=== PATIENT | female | born 1950 | race Caucasian/White ===

== ENCOUNTER 2020-12-02 13:16 | Outpatient (CLI) | payer MEDICAID, SELFPAY ==
--- NOTE | 2020-12-02 13:22 | MM_ITS ---
WS: [id number] BILATERAL SCREENING DIGITAL MAMMOGRAM WITH CAD HISTORY: SCREENING COMPARISON: None available. Bilateral CC and MLO views submitted. Computer aided detection analyzed. Breast composition: There are scattered areas of fibroglandular density. No suspicious masses, microc alcifications or architectural distortion. Vascular calcifications and benign coarse calcifications i n each breast. MM/[place] [id number] IMPRESSION: BI-RADS: 2-Benign FOLLOW UP: 1 Year Follow-up
--- NOTE | 2020-12-02 14:20 | CT_ITS ---
WS: [id number] LDCT LUNG CANCER SCREENING HISTORY: NICOTINE DEPENDENCE, CIGARETTES TECHNIQUE: Axial imaging performed from the apices to 1 cm below the costophrenic angles. Coronal and sagittal reformats are submitted with axial MIP series. All CT scans at [facility] use at least one of these dose optimization techniques: automated exposure control; mA and/or kV adjustment per patient size (includes targeted exams where dose is matched to clinical indication); or iterativ e reconstruction. DLP: 53.4 mGy.cm DIvol: 1.58 mGy COMPARISON: 04/04/2010 Diagnostic quality: Satisfactory Lung Nodules: Biapical pleural thickening and subsegmental atelectasis in the upper lung [place]. No p ulmonary nodules. No endobronchial lesions. There is very mild narrowing of the proximal LEFT upper l obe bronchus. Lungs: Area of atelectasis involving the medial LEFT upper lobe. On prior examination there was dense area of consolidation or lobar collapse in the LEFT upper lobe. Heart: Moderately enlarged chambers. Heavy mitral annular calcification along the mitral valve plane. Moderate calcification along the [place] coronary arteries. Other findings: Extensive atherosclerosis within the thoracic aorta. Ectasia and calcification and mi ld dilatation. Progression of atherosclerotic changes since 04/04/2010. This study is in adequate to ev aluate for mediastinal or hilar adenopathy. CT/CT lung screening [id number] IMPRESSION: LUNG-RADS: 1-Negative FOLLOW UP: 12 Month: Continue annual screening with LDCT OTHER FINDINGS (S MODIFIER): None.
== END 2020-12-02 13:17 | disposition home or self-care (01) ==
PROVIDERS: Visit Provider Family Medicine
DX: Z12.31 Encounter for screening mammogram for malignant neoplasm of breast (principal); F17.210 Nicotine dependence, cigarettes, uncomplicated
CPT/HCPCS: 71271; 77067

== ENCOUNTER 2022-06-02 09:08 | Outpatient (CLI) | payer MEDICAID, SELFPAY ==
--- NOTE | 2022-06-02 09:22 | CT_ITS ---
WS: [id number] LDCT LUNG CANCER SCREENING HISTORY: NICOTINE DEPENDENCE TECHNIQUE: Axial imaging performed from the apices to 1 cm below the costophrenic angles. Coronal and sagittal reformats are submitted with axial MIP series. All CT scans at [facility] use at least one of these dose optimization techniques: automated exposure control; mA and/or kV adjustment per patient size (includes targeted exams where dose is matched to clinical indication); or iterativ e reconstruction. DLP: 69.00 mGy.cm DIvol: Mean CTDIvol: 1.60 (mGy) COMPARISON: 12/02/2020 Diagnostic quality: Satisfactory Lung Nodules: None. Lungs: Focal area of scarring with calcification and bronchiectasis medial LEFT upper lobe is stable. No pneumonia. Heart: Mildly enlarged heart. Calcification along the mitral annular valve plane. Other findings: Moderate extensive atherosclerosis aorta. Calcification extends into the proximal gre at vessels. No adenopathy is identified. Small hiatal hernia. Calcification continues into the suprar enal abdominal aorta. Splenic artery calcifications. Mild curvature thoracic spine. CT/CT lung screening [id number] IMPRESSION: LUNG-RADS: 2-Benign Appearance or Behavior FOLLOW UP: 1 Month LDCT OTHER FINDINGS (S MODIFIER): None.
== END 2022-06-02 09:09 | disposition home or self-care (01) ==
PROVIDERS: PCP Family Medicine; Visit Provider Family Medicine
DX: F17.210 Nicotine dependence, cigarettes, uncomplicated (principal)
CPT/HCPCS: 71271

== ENCOUNTER 2022-08-28 11:24 | Emergency (ER) | payer MEDICAID, SELFPAY ==
[2022-08-28] VITALS (9 sets, daily range): BP systolic 115–164; BP diastolic 70–99; PULSE 75–92; RESP 16–25; TEMP 36.2–36.4; O2SAT 93–97
--- NOTE | 2022-08-28 11:26 | XR_ITS ---
WS: [id number] Exam: XR chest 1V portable [id number] Date/Time of Exam: 08/28/2022 11:26 AM Reason For Exam: dyspnea Comparison 01/21/2019. The lungs are fully inflated and clear. Mild cardiac enlargement. The mediastinum is normal in contou r. No pleural effusions. Monitoring leads superimpose the chest. XR/XR chest 1V portable [id number] IMPRESSION: 1. Slight cardiac enlargement. No acute process.
--- NOTE | 2022-08-28 11:32 | ECG_ITS ---
[facility] Test Date: 2022-08-28 Pat Name: Michelle Palafox Department: Room: Gender: Female Flange Turner: : 1950 Requested By: Jacque Gudino Order Number: [id number] Rikki MD: Fátima Arenas M.D. Measurements Intervals [place] Rate: 91 P: -58 AK: 168 QRS: -17 QRSD: 116 T: 61 QT: 370 QTc: 456 Interpretive Statements ECTOPIC ATRIAL RHYTHM WITH FREQUENT VENTRICULAR PREMATURE COMPLEXES INCOMPLETE RIGHT BUNDLE BRANCH BLOCK [90+ ms QRS DURATION, TERMINAL R IN V1/V2, 40+ ms S IN I/aVL/V4/V5/V6] MODERATE ST DEPRESSION [0.05+ mV ST DEPRESSION] No previous ECG available for comparison ANDREA Arenas MD/ Cardiology Electronically Signed On 08-28-2022 19:12:33 CDT by Fátima Arenas M.D. [id number]
--- NOTE | 2022-08-28 11:39 | ED_ITS ---
HPI - General Adult General: Chief complaint: Shortness of Breath/Dyspnea Stated complaint: RESPIRATORY DISTRESS Time Seen by Provider: 08/28/22 11:26 History of Present Illness: 72-year-old female with history of allergic reaction, hypertension who presents the emergency room with concerns of shortness of breath. Patient tells me that she has been having shortness of breath cough for 1 week. Patient has any fever or chills reports productive sputum. Patient denies any diarrhea melena or hematochezia. Patient is no abdominal complaints or decreased p.o. intake. Patient denies any urinary complaints. Patient denies shortness breath is worse with exertion. Patient was told to come to the emergency room by her primary care provider for concerns of possible pneumonia. EMS was called patient was brought to the emergency room. In route, patient was noted to be satting greater than 95% on room air. Patient not in any respiratory distress. Patient denies any other focal complaints. Onset:1 week ago Duration:1 week Location:home Severity:moderate Associated symptoms: Reports dyspnea; Deny chest pain, nausea, rash, palpitations or vomiting Review of Systems Const: Denies: fever(s) or chills Eyes: Denies: change in vision ENMT: Denies: mouth pain Card: Denies: chest pain or palpitations Resp: Reports: dyspnea and productive cough GI: Denies: abdominal pain, nausea, vomiting or diarrhea : Denies: dysuria Musc: Denies: extremity pain Skin/Breast: Denies: rash or new lesions Neuro: Denies: weakness in extremities Psych: Reports: other (Normal mood) Facundo/Lymph: Denies: easy bruising PFS ED PFSH: Medical History Allergic reaction Hypertension Social History Smoking and tobacco status: current every day smoker Alcohol intake: never Substance/Drug Use: never Physical Exam Const: COMMON NORMALS: alert HENMT: COMMON NORMALS: atraumatic HEAD & SCALP: atraumatic MOUTH: moist mucous membranes not abnormal Eye: COMMON NORMALS: EOMs intact bilaterally and conjunctivae normal CONJUNCTIVA: Yes conjunctivae normal Neck/C-Spine: COMMON NORMALS: full ROM and supple Resp: COMMON NORMALS: normal respiratory effort OTHER: +mild coarse breath sounds b/l Cardio: COMMON NORMALS: regular rate RATE: regular rate OTHER: 2+ radial pulses b/l GI: COMMON NORMALS: Soft to palpation and non-tender PALPATION: Yes Soft to palpation OTHER: No focal TTP. NO guarding rebound, guarding, rigidity. No CVA tenderness to percussion. Neg Pandey/Neg McBurney's point tenderness, no suprabupic tenderness to palpation. Extremity: COMMON NORMALS: full ROM Neuro: SENSORIUM/ORIENTATION: Yes alert MOTOR EXAM: No Abnormal motor strength present and Other motor observations present (no focal motor deficits) Psych: COMMON NORMALS: speech normal SPEECH: Yes normal speech MOOD & AFFECT: Yes euthymic mood Course Vital Signs: Vital signs: Vital Signs Temperature 97.6 F 08/28/22 11:27 Pulse Rate 85 08/28/22 14:00 Respiratory Rate 24 H 08/28/22 14:00 Blood Pressure 164/76 08/28/22 14:00 Pulse Oximetry 94 08/28/22 14:00 Oxygen Delivery Me thod 08/28/22 14:00 MDM - General Adult Medical Decision Making 72-year-old female with history of allergic reaction, hypertension who presents the emergency room with concerns of shortness of breath cough. Patient has been having symptoms for 1 week. Lung exam showed coarse breath sounds. Patient is noted to white count 10.8. X-ray is negative for pneumonia. proBNP of 900. Patient received 40 mg Lasix albuterol she reports feeling symptomatically proved. Patient's COVID influenza negative today. Given the fact that troponin x2 with delta less than 5, EKG is nonischemic, I do not suspect this is ACS. Doubt ACS/PE or other emergent causes of dyspnea. No suspicion for aortic dissection given no widened mediastinum, 2+ upper extremity pulses, or tearing pain. No suspicion for PE given no pleuritic chest pain, recent immobilization or surgery hemoptysis, or other VTE risk factors. EKG is non-ischemic. XR normal . Patient has a history of pneumonia request for antibiotics. Have given patient a prescription for antibiotics should she have any fever or worsening cough or dyspnea Rx albuterol for cough and dyspnea, doxycycline in case of pneumonia Disposition: Discharge. Patient counseled regarding diagnostic impression, treatment plan. Patient given ED strict return precautions to return for continuation, worsening, or development of new symptoms. Instructed to f/u w/ PCP regarding symptoms today. Patient verbalized understanding. Lab Data : 08/28/22 11:40 08/28/22 11:40 Radiology Impressions Chest X-Ray 08/28/22 11:26 IMPRESSION: 1. Slight cardiac enlargement. No acute process. Laboratory Results WBC 10.8 10^3/uL (4.0-10.0) H 08/28/22 11:40 RBC 4.48 10^6/uL (4.1-5.3) 08/28/22 11:40 Hgb 13.9 g/dL (11.5-15.3) 08/28/22 11:40 Hct 42.4 % (37.0-47.0) 08/28/22 11:40 MCV 94.6 fl (81-99) 08/28/22 11:40 MCH 31.0 pg (28.0-34.0) 08/28/22 11:40 MCHC 32.8 g/dL (30.0-36.0) 08/28/22 11:40 RDW 13.7 % (12.1-15.1) 08/28/22 11:40 Plt Count 255 10^3/cmm (130-400) 08/28/22 11:40 MPV 10.4 fL (7.4-10.4) 08/28/22 11:40 Neut % (Auto) 53.9 % 08/28/22 11:40 Lymph % (Auto) 31.0 % 08/28/22 11:40 [place] % (Auto) 9.7 % 08/28/22 11:40 Eos % (Auto) 4.2 % 08/28/22 11:40 Baso % (Auto) 1.0 % 08/28/22 11:40 Neut # (Auto) 5.83 10^3/uL (1.8-7.7) 08/28/22 11:40 Lymph # (Auto) 3.4 10^3/uL (0.8-4.8) 08/28/22 11:40 [place] # (Auto) 1.1 10^3/uL (0.2-0.9) H 08/28/22 11:40 Eos # (Auto) 0.5 10^3/uL (0.0-0.8) 08/28/22 11:40 Baso # (Auto) 0.1 10^3/uL (0.0-0.1) 08/28/22 11:40 Nucleated RBC % (auto) 0 % 08/28/22 11:40 Nucleated RBCs # 0.0 /100WBC 08/28/22 11:40 Sodium 138 mmol/L (136-145) 08/28/22 11:40 Potassium 4.3 mmol/L (3.5-5.1) 08/28/22 11:40 Chloride 99 mmol/L (98-107) 08/28/22 11:40 Carbon Dioxide 28 mmol/L (22-29) 08/28/22 11:40 Anion Gap 15.3 (5-19) 08/28/22 11:40 BUN 18 mg/dL (8-23) 08/28/22 11:40 Creatinine 0.7 mg/dL (0.5-0.9) 08/28/22 11:40 GFR Calculation 82.7 mL/min (90-130) L 08/28/22 11:40 Glucose 113 mg/dL (65-115) 08/28/22 11:40 Calculated Osmolality 289 mOsm/kg (285-295) 08/28/22 11:40 Calcium 9.5 mg/dL (8.5-10.5) 08/28/22 11:40 Troponin T Baseline 8 ng/L (0-10) 08/28/22 11:40 Troponin T 120 Minute 7.71 ng/L (0-10) 08/28/22 14:02 NT-Pro-B Natriuret Pep 945 pg/mL (0-125) H 08/28/22 11:40 Coronavirus 229E (PCR) Not detected (NOT DETECT) 08/28/22 11:40 Influenza Type A Ag Negative (Negative) 08/28/22 11:40 Influenza Type B Ag Negative (Negative) 08/28/22 11:40 SARS-CoV-2 (PCR) Not detected (NOT DETECT) 08/28/22 11:40 Imaging Data Other Imaging: Radiologist's impression: [address] [address] XRay Report Signed Patient: Michelle Palafox Unit #: [id number] : 1950 Age/Sex: 72 / F ADM Date: 08/28/22 Loc: ER Room/Bed: Attending Dr: Ordering Provider/Ordering MD: Jacque Gudino MD Date of Service: 08/28/22 Procedure(s): XR chest 1V portable [id number] Accession Number(s): [id number] Report Number: [id number] WS: [id number] Exam: XR chest 1V portable [id number] Date/Time of Exam: 08/28/2022 11:26 AM Reason For Exam: dyspnea Comparison 01/21/2019. The lungs are fully inflated and clear. Mild cardiac enlargement. The mediastinum is normal in contour. No pleural effusions. Monitoring leads superimpose the chest. XR/XR chest 1V portable [id number] IMPRESSION: 1. Slight cardiac enlargement. No acute process. ? Dictated By: Dagoberto Yeager DO Signed By: Dagoberto Yeager DO Signed Date/Time: 08/28/22 1231 DD/ 1230 Discharge Plan Discharge Patient Disposition: Home Clinical Impression: Dyspnea, Cough Condition: Stable Prescriptions: New doxycycline hyclate 100 mg capsule 100 mg PO BID 10 Days Qty: 20 0RF albuterol sulfate 90 mcg/actuation HFA aerosol inhaler 2 inh inhalation Q4H PRN (Reason: shortness of breath or wheezing) 5 Days Qty: 6.7 0RF No Action Bevespi Aerosphere 9-4.8 mcg HFA aerosol inhaler 2 puff inhalation BID amlodipine 10 mg tablet 10 mg PO DAILY lisinopril 40 mg tablet 40 mg PO DAILY dicyclomine 10 mg capsule 10 mg PO DAILY loratadine [Allergy Relief (loratadine)] 10 mg tablet 10 mg PO DAILY fluticasone propionate [Flovent HFA] 110 mcg/actuation HFA aerosol inhaler 1 puff inhalation BID citalopram [Celexa] 40 mg tablet 40 mg PO DAILY fluticasone propionate 50 mcg/actuation spray,suspension 1 spray intranasal DAILY Rx Instructions: administer into each nostril Discharge Orders: Discharge ED (Routine); Ordered 08/28/22 Ordered By: Jacque Gudino Referrals: Morgan Jeronimo MD [Primary Care Provider] - Discharge Diet: Advance as tolerated Discharge Activity: Increase activity as tolerated Patient Instructions: Acute Cough (ED) Activity Restrictions/Additional Instructions: Come back to the emergency room if your symptoms worsen, have any shortness of breath, fever/chills, dehydration, inability tolerate food or drinks, any difficulty breathing, or any new or concerning complaints. Coding Level of Care Code ED Animal Biologist for Flavia Fwd Exam Comprehensive
[2022-08-28 11:55] LABS: Basophils # 0.1 10^3/uL (0.0-0.1); Eosinophils # 0.5 10^3/uL (0.0-0.8); Eosinophils % 4.2 %; Hematocrit 42.4 % (37.0-47.0); Hemoglobin 13.9 g/dL (11.5-15.3); Lymphocytes # 3.4 10^3/uL (0.8-4.8); Mean Corpuscular HGB Conc 32.8 g/dL (30.0-36.0); Mean Corpuscular Volume 94.6 fl (81-99); Mean Platelet Volume 10.4 fL (7.4-10.4); Monocytes # 1.1 10^3/uL (0.2-0.9); Monocytes % 9.7 %; Neutrophils # 5.83 10^3/uL (1.8-7.7); Neutrophils % 53.9 %; Nucleated Red Blood Cells % 0 %; Platelet Count 255 10^3/cmm (130-400); Red Blood Count 4.48 10^6/uL (4.1-5.3); Red Cell Distribution Width 13.7 % (12.1-15.1); White Blood Count 10.8 10^3/uL (4.0-10.0)
[2022-08-28 12:16] LABS: Influenza A by IFA Negative (Negative); Influenza B by IFA Negative (Negative)
[2022-08-28 12:29] LABS: Troponin(5th) Baseline 8 ng/L (0-10)
[2022-08-28 12:36] LABS: Anion Gap 15.3 (5-19); Blood Urea Nitrogen 18 mg/dL (8-23); Calcium 9.5 mg/dL (8.5-10.5); Carbon Dioxide 28 mmol/L (22-29); Chloride 99 mmol/L (98-107); Glomerular Filtration Rate 82.7 mL/min (90-130); Glucose 113 mg/dL (65-115); NT Pro B Type Natriuretic Pept 945 pg/mL (0-125); Osmolality Calculated 289 mOsm/kg (285-295); Potassium 4.3 mmol/L (3.5-5.1); Sodium 138 mmol/L (136-145)
[2022-08-28 13:37] LABS: Adenovirus Not Detected (NOT DETECT); Chlamydia Pneumoniae Not Detected (NOT DETECT); Coronavirus 229E,HKU1,NL63,OC4 Not Detected (NOT DETECT); Human Metapneumovirus Not Detected (NOT DETECT); Human Rhinovirus/Enterovirus Not Detected (NOT DETECT); Influenza A Not Detected (NOT DETECT); Influenza A H1 Not Detected (NOT DETECT); Influenza A H1-2009 Not Detected (NOT DETECT); Influenza A H3 Not Detected (NOT DETECT); Influenza B Not Detected (NOT DETECT); Mycoplasma Pneumoniae Not Detected (NOT DETECT); Parainfluenza Virus Type 1 Not Detected (NOT DETECT); Parainfluenza Virus Type 2 Not Detected (NOT DETECT); Parainfluenza Virus Type 3 Not Detected (NOT DETECT); Parainfluenza Virus Type 4 Not Detected (NOT DETECT); Respiratory Syncytial Virus A Not Detected (NOT DETECT); Respiratory Syncytial Virus B Not Detected (NOT DETECT); SARS-COV-2 Not Detected (NOT DETECT)
[2022-08-28] MEDS: ipratropium-albuterol 3 mL Neb INHALATION (13:45)
[2022-08-28] MEDS: FUROsemide 10 mg/mL SDV 4mL 40 MG IVP (13:56)
--- NOTE | 2022-08-28 13:58 | ECG_ITS ---
[facility] Test Date: 2022-08-28 Pat Name: Michelle Palafox Department: Room: Gender: Female Leader Assembler: : 1950 Requested By: Jacque Gudino Order Number: [id number] Rikki MD: Fátima Arenas M.D. Measurements Intervals [place] Rate: 85 P: -41 [place]: 177 QRS: -27 QRSD: 107 T: 58 QT: 374 QTc: 447 Interpretive Statements SINUS RHYTHM WITH FREQUENT VENTRICULAR PREMATURE COMPLEXES BORDERLINE LEFT AXIS DEVIATION [QRS AXIS < -20] INCOMPLETE RIGHT BUNDLE BRANCH BLOCK [90+ ms QRS DURATION, TERMINAL R IN V1/V2, 40+ ms S IN I/aVL/V4/V5/V6] MODERATE ST DEPRESSION [0.05+ mV ST DEPRESSION] Compared to ECG 08/28/2022 11:32:50 Ectopic atrial rhythm no longer present ST (T wave) deviation still present Electronically Signed On 08-28-2022 19:12:57 CDT by Fátima Arenas M.D. [id number]
[2022-08-28 14:32] LABS: Troponin 5 2HR 7.71 ng/L (0-10)
[2022-08-28 15:52] LABS: Troponin 5 2HR Delta -0.29 ABS# (0-10)
== END 2022-08-28 15:53 | disposition home or self-care (01) ==
PROVIDERS: Emergency Provider Emergency Medicine; PCP Family Medicine
DX: R06.00 Dyspnea, unspecified (principal); R05.9 Cough, unspecified; Z20.822 Contact with and (suspected) exposure to COVID-19; I10 Essential (primary) hypertension; F17.210 Nicotine dependence, cigarettes, uncomplicated
CPT/HCPCS: 71045; 80048; 83880; 84484; 85025; 87635; 87804; 93005; 94640; 96374; 99285; J1940

== ENCOUNTER 2022-11-17 11:04 | Outpatient (CLI) | payer MEDICAID, SELFPAY ==
--- NOTE | 2022-11-17 11:12 | MM_ITS ---
WS: [id number] VIEWS: MLO and CC views both breasts. 3D digital tomosynthesis is also included in this exam. Comparison made with prior exam of 12/02/2020. Findings: There was no sign of mass, architectural distortion or suspicious calcification in either breast. Sc attered fibroglandular densities MM/[place] [id number] Impression: BI-RADS: 2-Benign FOLLOW-UP: 1 Year Follow-up This mammogram was also analyzed by the Computer Aided Detection System R2 Imag [place] Program Technician.
== END 2022-11-17 11:05 | disposition home or self-care (01) ==
LOC: RAD 11:04
PROVIDERS: PCP Family Medicine; Visit Provider Family Medicine
DX: Z12.31 Encounter for screening mammogram for malignant neoplasm of breast (principal)
CPT/HCPCS: 77063; 77067

== ENCOUNTER 2023-07-22 10:41 | Outpatient (CLI) | payer MEDICAID, SELFPAY ==
--- NOTE | 2023-07-22 10:54 | CT_ITS ---
WS: [id number] LDCT LUNG CANCER SCREENING TECHNIQUE: Noncontrast CT of the chest with coronal and sagittal reformatted images. CLINICAL INFORMATION: NICOTINE DEPENDENCE,CIGARETTES COMPARISON: None. DLP: 42.30 mGy.cm DIvol: Mean CTDIvol: 0.70 (mGy) All CT scans at [facility] use at least one of these dose optimization techniques: automat ed exposure control; mA and/or kV adjustment per patient size (includes targeted exams where dose is matched to clinical indication); or iterative reconstruction. FINDINGS: Stable subsegmental atelectasis with bronchiectasis in the LEFT upper lobe. No other suspicious pulmo nary parenchymal abnormalities. Aortic calcification. Tortuous thoracic aorta. Coronary calcification. Aneurysmal tortuous upper abdo [place] aorta partially visualized measuring 4.0 x 5.0 cm AP by transverse. No mediastinal or hilar lym phadenopathy. Slightly prominent LEFT axillary lymph node measuring 8 mm. This can be further evaluat ed with ultrasound. Atrophic RIGHT kidney. Moderate spondylitic changes thoracic spine with mild thoracic curve and mild thoracic kyphosis. IMPRESSION: Abdominal aortic aneurysm in the upper abdomen partially visualized measuring 4.0 x 5.0 c m AP by transverse. Recommend further evaluation with CTa abdomen pelvis. Slightly prominent LEFT axillary lymph node measuring 8 mm. This can be further evaluated with ultras ound. CT/CT lung screening [id number] LUNG-RADS: 2S-Benign Appearance or Behavior with Significant Findings FOLLOW UP: 12 Month: Continue annual screening with LDCT
== END 2023-07-22 10:42 | disposition home or self-care (01) ==
PROVIDERS: PCP Family Medicine; Visit Provider Family Medicine
DX: Z12.2 Encounter for screening for malignant neoplasm of respiratory organs (principal); F17.210 Nicotine dependence, cigarettes, uncomplicated
CPT/HCPCS: 71271

== ENCOUNTER 2023-08-11 12:56 | Outpatient (CLI) | payer MEDICAID, SELFPAY ==
--- NOTE | 2023-08-11 13:02 | US_ITS ---
WS: [id number] ULTRASOUND SOFT TISSUES LEFT axilla HISTORY: AXILLARY LYMPHADENOPATHY COMPARISON: None available. TECHNIQUE: 2-D and color Doppler imaging is submitted. Small lymph nodes are identified within the axilla. These lymph nodes are not enlarged. Maximum diame ter of 1.1 cm. No increased vascularity. Normal fatty lara. IMPRESSION: Small benign-appearing LEFT axillary lymph nodes.
--- NOTE | 2023-08-11 13:02 | CT_ITS ---
WS: [id number] CT ANGIOGRAPHY ABDOMEN AND PELVIS HISTORY: ABDOMINAL AORTIC ANEURYSM W/O RUPTURE TECHNIQUE: CT angiogram is performed during IV injection. Reformation images reviewed. All CT scans a [email or web address] use at least one of these dose optimization techniques: automated exposure contro l; mA and/or kV adjustment per patient size (includes targeted exams where dose is matched to clinica l indication); or iterative reconstruction. CONTRAST: Omnipaque 350; 100 mL IV. DLP: 197.68 mGy.cm COMPARISON: None available. Motion artifact at the lung bases. No pneumonia. Mild cardiomegaly. Abdominal aorta: Markedly ectatic atherosclerotic changes throughout a tortuous dilated abdominal aor ta. Near contiguous calcified plaque within the wall. Near circumferential soft plaque surrounding th e patent lumen. Maximum diameter of 4.0 cm in the infrarenal aorta. Aneurysm begins just below the le [place]ne of the renal arteries and extends to the bifurcation. Aneurysm extends over a length of approxima tely 6.6 cm. Mildly ectatic atherosclerotic common iliac arteries. Nonaneurysmal. Increasing plaque e xtends into the proximal external iliac arteries. Mild atherosclerotic plaque involving the celiac ax is and SMA. No occlusions. Good enhancement of the LEFT kidney. Mild stenosis involving the proximal LEFT renal artery. There is nonenhancement of the RIGHT kidney with marked atrophy from chronic proce ss, probably chronic ischemia. Study is compromised by breathing motion artifact throughout the entire exam. Visceral organs are dif ficult to evaluate accurately. No organomegaly. No masses are identified. Marked fluid distention of the stomach. No small bowel obstruction. Marked constipation. Ventral abdominal wall hernia repair. N o free fluid or adenopathy. Moderate RIGHT curvature lumbar spine with asymmetric disc space narrowing. No fractures. IMPRESSION: 1. CT angiogram is significantly compromised by motion and breathing artifact. 2. Infrarenal abdominal aortic aneurysm extends over a length of 6.6 cm. Maximum transverse diameter 4.0 cm. There is marked tortuosity with calcified and noncalcified plaque. 3. Mildly ectatic common iliac arteries with extension of atherosclerotic plaque into the external il iac arteries. No occlusions. 4. Nonenhancement and severe atrophy RIGHT kidney. 5. Diffuse constipation.
[2023-08-11 14:22] LABS: Blood Urea Nitrogen 16 mg/dL (8-23)
[2023-08-11] MEDS: iohexol 350 mg/mL 500 mL Btl (per mL) IV (14:33)
== END 2023-08-11 12:57 | disposition home or self-care (01) ==
PROVIDERS: Radiology Diagnostic Radiology; PCP Family Medicine; Visit Provider Family Medicine
DX: I71.43 Infrarenal abdominal aortic aneurysm, without rupture (principal); I70.8 Atherosclerosis of other arteries; K59.00 Constipation, unspecified; N26.1 Atrophy of kidney (terminal)
CPT/HCPCS: 74174; 76882; 82565; 84520; Q9967

== ENCOUNTER 2024-04-20 11:48 | Emergency (ER) | payer MEDICAID, SELFPAY ==
[2024-04-20 11:52] VITALS: BP 137/86; PULSE 88; RESP 17; TEMP 36.8; O2SAT 97; BMI 20.3
[2024-04-20] MEDS: rabies vaccine 2.5 unit SDV IM (13:07)
--- NOTE | 2024-04-20 13:11 | W.ED.ANIMALB ---
HPI - Animal Bite General: Chief Complaint: Animal Bite Stated Complaint: cat bite, right arm Time Seen by Provider: 04/20/24 12:47 Source: patient Mode of arrival: ambulatory Limitations: no limitations History of Present Illness: 74-year-old female was bit and scratched by cat 3 days ago on her right wrist she has been on clindamycin states the erythema is improved but her PCP had sent her up here for rabies prophylaxis because she is unsure if the cat was vaccinated or not. She denies any fever denies any drainage Associated symptoms: Deny chills, fever(s) or headache(s) Review of Systems Const: Denies: fever(s), chills, body aches or change in appetite ENMT: Denies: throat pain or dental pain Card: Denies: chest pain Resp: Denies: dyspnea GI: Denies: abdominal pain, nausea, vomiting or diarrhea Musc: Denies: neck pain or back pain Skin/Breast: Denies: rash Neuro: Denies: headache(s) PFSH ED PFSH: Medical History Allergic reaction Hypertension Social History Smoking and tobacco/nicotine status: current every day tobacco/nicotine user cigarettes Packs smoked per day: 2 Years cigarettes smoked: 41 Alcohol intake: never Substance/Drug Use: never Physical Exam Const: COMMON NORMALS: no acute distress, patient oriented x3 and healthy appearing HENMT: COMMON NORMALS: normocephalic and atraumatic HEAD & SCALP: normocephalic and atraumatic Neck/C-Spine: COMMON NORMALS: full ROM and supple Chest: COMMONS NORMALS: normal inspection of the chest Resp: COMMON NORMALS: normal respiratory effort Cardio: COMMON NORMALS: regular rate, regular rhythm and No murmurs present (Cardio) RATE: regular rate RHYTHM: regular rhythm Extremity: COMMON NORMALS: normal to inspection and full ROM Neuro: COMMON NORMALS: patient oriented x3, moves all extremities and no focal motor deficits Psych: COMMON NORMALS: mental status grossly normal, Normal thought process present and cooperative THOUGHT PROCESS: Normal thought process present Skin: NARRATIVE SKIN EXAM: Cat bite scratches to right wrist no erythema at this time Course Vital Signs: Vital signs: Vital Signs Temperature 98.2 F 04/20/24 11:52 Pulse Rate 88 04/20/24 11:52 Respiratory Rate 17 04/20/24 11:52 Blood Pressure 137/86 04/20/24 11:52 Pulse Oximetry 97 04/20/24 11:52 Oxygen Delivery Me thod Room Air 04/20/24 11:52 MDM - Animal Bite Medical Decision Making Patient presents here with a cat bite to her right wrist she is already on antibiotics she has no signs of any severe cellulitis she is here for rabies prophylaxis will start first dose and then she is follow-up with infusion center for subsequent doses she stable for discharge informed if she has worsening cellulitis she is to return she understands agrees to plan she is to take the clindamycin as prescribed. Medical Records I reviewed the patient's medical records. No radiology studies performed this visit Discharge Plan Discharge Patient Disposition: Home Clinical Impression: Cat bite Condition: Stable Prescriptions: No Action Bevespi Aerosphere 9-4.8 mcg HFA aerosol inhaler 2 puff inhalation BID amlodipine 10 mg tablet 10 mg PO DAILY lisinopril 40 mg tablet 40 mg PO DAILY dicyclomine 10 mg capsule 10 mg PO DAILY loratadine [Allergy Relief (loratadine)] 10 mg tablet 10 mg PO DAILY fluticasone propionate [Flovent HFA] 110 mcg/actuation HFA aerosol inhaler 1 puff inhalation BID citalopram [Celexa] 40 mg tablet 40 mg PO DAILY fluticasone propionate 50 mcg/actuation spray,suspension 1 spray intranasal DAILY Rx Instructions: administer into each nostril Discharge Orders: Discharge ED (Routine); Ordered 04/20/24 Ordered By: Melecio Ferguson Referrals: Morgan Jeronimo MD [Primary Care Provider] - 4-7 days Discharge Diet: Advance as tolerated Discharge Activity: Resume usual activity Patient Instructions: Animal Bite (ED) Coding Level of Care Code ED Surveillance Technician for Flavia Tate
[2024-04-20] MEDS: rabies IG 300 unit/mL SDV 1 mL 1050 UNIT IM (13:12)
[2024-04-20 13:37] VITALS: BP 157/83; PULSE 87; RESP 18; O2SAT 94
== END 2024-04-20 13:38 | disposition home or self-care (01) ==
PROVIDERS: Emergency Provider Emergency Medicine; PCP Family Medicine
DX: S61.551A Open bite of right wrist, initial encounter (principal); W55.01XA Bitten by cat, initial encounter; I10 Essential (primary) hypertension; F17.210 Nicotine dependence, cigarettes, uncomplicated; Z29.14 Encounter for prophylactic rabies immune globulin; Z20.3 Contact with and (suspected) exposure to rabies; Z23 Encounter for immunization
CPT/HCPCS: 90375; 90471; 90675; 96372; 99283

== ENCOUNTER 2024-04-27 15:00 | Oncology outpatient (recurring) (ONCR) | payer MEDICAID, SELFPAY ==
[2024-04-25] MEDS: rabies vaccine 2.5 unit SDV IM (15:19)
[2024-04-27] MEDS: rabies vaccine 2.5 unit SDV IM (15:45)
== END 2024-04-28 23:59 | disposition home or self-care (01) ==
PROVIDERS: PCP Family Medicine; Visit Provider Internal Medicine Medical Oncology
DX: Z20.3 Contact with and (suspected) exposure to rabies (principal); Z23 Encounter for immunization; S60.811A Abrasion of right wrist, initial encounter; W55.03XA Scratched by cat, initial encounter; Z53.9 Procedure and treatment not carried out, unspecified reason
CPT/HCPCS: 90471; 90675

== ENCOUNTER 2024-05-04 14:52 | Oncology outpatient (recurring) (ONCR) | payer MEDICAID, SELFPAY ==
[2024-05-04] MEDS: rabies vaccine 2.5 unit SDV IM (16:04)
== END 2024-05-28 23:59 | disposition home or self-care (01) ==
PROVIDERS: PCP Family Medicine; Visit Provider Internal Medicine Medical Oncology
DX: Z20.3 Contact with and (suspected) exposure to rabies (principal); Z23 Encounter for immunization; S61.551A Open bite of right wrist, initial encounter; W55.01XA Bitten by cat, initial encounter
CPT/HCPCS: 90471; 90675

== ENCOUNTER 2024-06-22 13:19 | Outpatient (CLI) | payer MEDICAID, SELFPAY ==
--- NOTE | 2024-06-22 13:22 | MM_ITS ---
WS: [id number] BILATERAL SCREENING DIGITAL TOMOSYNTHESIS MAMMOGRAM WITH CAD HISTORY: SCREENING COMPARISON: 11/17/2022, 12/02/2020 Bilateral CC and MLO views with tomosynthesis and synthetic mammography submitted. Computer aided det ection analyzed. Breast composition: There are scattered areas of fibroglandular density. No suspicious masses, microc alcifications or architectural distortion. Benign calcifications in each breast. MM/[place] [id number] IMPRESSION: BI-RADS: 2-Benign FOLLOW UP: 1 Year Follow-up
== END 2024-06-22 13:20 | disposition home or self-care (01) ==
PROVIDERS: PCP Family Medicine; Visit Provider Family Medicine
DX: Z12.31 Encounter for screening mammogram for malignant neoplasm of breast (principal); I10 Essential (primary) hypertension; R92.323 Mammographic fibroglandular density, bilateral breasts; R92.1 Mammographic calcification found on diagnostic imaging of breast
CPT/HCPCS: 77063; 77067; 99204

== ENCOUNTER 2024-12-06 14:44 | Emergency (ER) | payer MEDICAID, SELFPAY ==
[2024-12-06 15:06] VITALS: BP 119/73; PULSE 98; RESP 18; TEMP 36.7; O2SAT 95
--- NOTE | 2024-12-06 15:37 | XR_ITS ---
WS: [id number] Portable AP upright chest, 12/06/2024 Clinical Data: psych xfer Comparison: Portable chest, 08/28/2022 Findings: No nodules, masses or effusions are seen. The heart is slightly enlarged. The pulmonary vas cularity is not increased. No pneumonia or pneumothorax is seen. The diaphragms are flattened. The ao rtic arch and descending thoracic aorta show calcification and tortuosity. There are soft tissue calc ifications overlying the proximal left humerus unchanged. 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 XR/XR chest 1V portable [id number] Impression: 1. Cardiomegaly and atherosclerosis. 2. Hyperinflation.
--- NOTE | 2024-12-06 15:39 | ED.C_ITS ---
HPI - Psych 2 General: Chief Complaint: Psychiatric Symptoms Stated Complaint: MHE Time Seen by Provider: 12/06/24 15:20 Source: patient Mode of arrival: ambulatory Limitations: other (poor historian) History of Present Illness: Patient is a 74-year-old female who presents the emergency department complaining of anxiety and paranoia. She is a very poor historian and does not provide much useful history, but does state that she would like to be seen by psychiatrist due to how much stress she is under. She is stating that she thinks people are out to get her, specifically 1 person that has stolen her identity and taken her name and likeness. She begins going off of many tangents, specifically talking about bald [employer] as well as her family member who is in the [employer]. She does not endorse any suicidal or homicidal plan, though when I asked her she does not specifically deny feeling suicidal homicidal. She also does not report any hallucinations, but when I asked her if she is seeing or hearing things she begins tangentially speaking about other subjects. She is requesting something for stress right now, states that she takes trazodone and when I review her medical history I do not see this prescription, I do see a prescription for citalopram. Reportedly she lives at home alone. Review of systems unobtainable due to her poor historian. complaint: other (Anxious and paranoid) Duration: constant Related Data Home Medications Medication Instructions Recorded Confirmed amlodipine 10 mg tablet 10 mg PO DAILY 07/30/22 12/06/24 lisinopril 40 mg tablet 40 mg PO DAILY 07/30/22 12/06/24 loratadine 10 mg tablet (Allergy 10 mg PO DAILY PRN allergies 07/30/22 12/06/24 Relief (loratadine)) atorvastatin 10 mg tablet 10 mg PO DAILY 12/06/24 12/06/24 mirtazapine 7.5 mg tablet 7.5 mg PO QPM 12/06/24 12/06/24 mupirocin 2 % topical ointment 1 applic topical TID 12/06/24 12/06/24 Allergies Allergy/AdvReac Type Severity Reaction Status Date / Time No Known Allergies Allergy Verified 12/06/24 15:13 Review of Systems 2 General: Reports: Other (Unobtainable due to poor historian) [facility] ED 2 PFSH: Medical History Allergic reaction Hypertension Social History Smoking and tobacco/nicotine status: current every day tobacco/nicotine user cigarettes Packs smoked per day: 2 Years cigarettes smoked: 41 Alcohol intake: never Substance/Drug Use: never Physical Exam 2 Const: COMMON NORMALS: no acute distress, patient oriented x3 and alert G ENERAL APPEARANCE: disheveled NUTRITIONAL APPEARANCE: thin O RIENTATION/CONSCIOUSNESS: Yes awake, Yes oriented to person, Yes oriented to place and Yes oriented to time OTHER: Paranoid HENMT: COMMON NORMALS: normocephalic and atraumatic HEAD & SCALP: n ormocephalic and atraumatic Eye: COMMON NORMALS: EOMs intact bilaterally and conjunctivae normal C ONJUNCTIVA: Yes conjunctivae normal Neck/C-Spine: COMMON NORMALS: full ROM Resp: COMMON NORMALS: normal respiratory effort, No retractions, No use of accessory muscles and clear to auscultation bilaterally AUSCULTATION: clear to auscultation bilaterally Cardio: COMMON NORMALS: regular rate and regular rhythm RATE: regular rate RHYTHM: regular rhythm GI: COMMON NORMALS: Soft to palpation and non-tender PALPATION: Yes Soft to palpation Extremity: COMMON NORMALS: normal to inspection and full ROM Neuro: COMMON NORMALS: patient oriented x3, moves all extremities, no focal motor deficits and no sensory deficits noted SENSORIUM/ORIENTATION: Yes alert, Yes oriented to person, Yes oriented to place and Yes oriented to time Psych: APPEARANCE: Yes disheveled ATTITUDE: Yes paranoid ACTIVITY/MOTOR BEHAVIOR: Yes psychomotor agitation SPEECH: Yes rapid MOOD & AFFECT: Yes anxious THOUGHT PROCESS: Flight of ideas present and Tangential thought process present THOUGHT CONTENT: No Suicidality present, No Homicidality present and No Hallucination(s) present Skin: COMMON NORMALS: no rashes or lesions noted GENERAL SKIN EXAM: no rashes or lesions noted Course 2 Vital Signs: Vital signs: Vital Signs Temperature 98.0 F 12/06/24 15:06 Pulse Rate 92 12/06/24 18:10 Respiratory Rate 18 12/06/24 15:06 Blood Pressure 132/78 12/06/24 18:10 Pulse Oximetry 94 12/06/24 18:10 Oxygen Delivery Me thod Room Air 12/06/24 18:10 [facility] - Psych Medical Decision Making Patient accepted for transfer to [facility] psych. Lab Data 12/06/24 16:07 12/06/24 16:07 Radiology Impressions Chest X-Ray 12/06/24 15:37 Impression: 1. Cardiomegaly and atherosclerosis. 2. Hyperinflation. Laboratory Results WBC 10.21 10^3/uL (3.29-11.43) 12/06/24 16:07 RBC 5.06 10^6/uL (3.85-5.65) 12/06/24 16:07 Hgb 15.40 g/dL (11.27-16.99) 12/06/24 16:07 Hct 47.5 % (36-47) H 12/06/24 16:07 MCV 93.9 fl (85-98) 12/06/24 16:07 MCH 30.4 pg (27-33) 12/06/24 16:07 MCHC 32.4 g/dL (30-55) 12/06/24 16:07 RDW 14.2 % (12.1-15.1) 12/06/24 16:07 Plt Count 248 10^3/cmm (157-399) 12/06/24 16:07 MPV 10.2 fL (7.4-10.4) 12/06/24 16:07 Neut % (Auto) 57.4 % 12/06/24 16:07 Lymph % (Auto) 30.0 % 12/06/24 16:07 [place] % (Auto) 10.0 % 12/06/24 16:07 Eos % (Auto) 1.8 % 12/06/24 16:07 Baso % (Auto) 0.7 % 12/06/24 16:07 Neut # (Auto) 5.87 10^3/uL (1.8-7.7) 12/06/24 16:07 Lymph # (Auto) 3.1 10^3/uL (0.8-4.8) 12/06/24 16:07 [place] # (Auto) 1.0 10^3/uL (0.2-0.9) H 12/06/24 16:07 Eos # (Auto) 0.2 10^3/uL (0.0-0.8) 12/06/24 16:07 Baso # (Auto) 0.1 10^3/uL (0.0-0.1) 12/06/24 16:07 Nucleated RBC % (auto) 0 % 12/06/24 16:07 Nucleated RBCs # 0.0 /100WBC 12/06/24 16:07 Sodium 139 mmol/L (136-145) 12/06/24 16:07 Potassium 3.8 mmol/L (3.5-5.1) 12/06/24 16:07 Chloride 99 mmol/L (98-107) 12/06/24 16:07 Carbon Dioxide 28 mmol/L (22-29) 12/06/24 16:07 Anion Gap 15.8 (5-19) 12/06/24 16:07 BUN 16 mg/dL (8-23) 12/06/24 16:07 Creatinine 0.9 mg/dL (0.5-0.9) 12/06/24 16:07 GFR Calculation Not Reportable 12/06/24 16:07 Glucose 81 mg/dL (65-115) 12/06/24 16:07 Calculated Osmolality 288 mOsm/kg (285-295) 12/06/24 16:07 Calcium 9.7 mg/dL (8.5-10.5) 12/06/24 16:07 Total Bilirubin 0.4 mg/dL (0.15-1.2) 12/06/24 16:07 AST 29 U/L (0-32) 12/06/24 16:07 ALT 18 U/L (0-33) 12/06/24 16:07 Alkaline Phosphatase 123 U/L (35-105) H 12/06/24 16:07 Total Protein 7.5 g/dL (6.6-8.7) 12/06/24 16:07 Albumin 3.9 g/dL (3.5-5.2) 12/06/24 16:07 Globulin 3.6 g/dL (1.3-4.6) 12/06/24 16:07 TSH 0.93 uIU/mL (0.27-4.20) 12/06/24 16:07 Urine Color Yellow (Yellow) 12/06/24 16:27 Urine Appearance Cloudy (CLEAR) A 12/06/24 16:27 Urine pH 6.5 (5-7) 12/06/24 16:27 Ur Specific [place] 1.016 (1.005-1.030) 12/06/24 16:27 Urine Protein 1+ (Negative) A 12/06/24 16:27 Urine Glucose (UA) Negative (Normal) 12/06/24 16:27 Urine Ketones 1+ (Negative) H 12/06/24 16:27 Urine Blood Negative (Negative) 12/06/24 16:27 Urine Nitrate Negative (Negative) 12/06/24 16:27 Urine Bilirubin Negative (Negative) 12/06/24 16:27 Urine Urobilinogen 1.0 mg/dL (Negative) 12/06/24 16:27 Ur Leukocyte Esterase 1+ (Negative) A 12/06/24 16:27 Urine RBC 6-10 /hpf (0-2) 12/06/24 16:27 Urine WBC 0-5 /hpf (0-5) 12/06/24 16:27 Ur Squamous Epith Cells 11-20 /hpf (0-5) 12/06/24 16:27 Amorphous Sediment Not Reportable 12/06/24 16:27 Urine Bacteria 1+ /hpf (NONE) H 12/06/24 16:27 Hyaline Casts 29.34 /lpf 12/06/24 16:27 Salicylates < 0.3 mg/dL (3-10) L 12/06/24 16:07 Urine Opiates Screen Negative ng/mL (Negative) 12/06/24 16:27 Acetaminophen < 5.0 ug/mL (10-30) L 12/06/24 16:07 Ur Barbiturates Screen Negative ng/mL (Negative) 12/06/24 16:27 Ur Phencyclidine Scrn Negative ng/mL (Negative) 12/06/24 16:27 Ur Amphetamines Screen Negative ng/mL (Negative) 12/06/24 16:27 U Benzodiazepines Scrn Negative ng/mL (Negative) 12/06/24 16:27 Urine Cocaine Screen Negative ng/mL (Negative) 12/06/24 16:27 U Marijuana (THC) Screen Negative ng/mL (Negative) 12/06/24 16:27 Ethyl Alcohol < 10 mg/dL (0-10) 12/06/24 16:07 Adenovirus (PCR) Not detected (NOT DETECT) 12/06/24 17:00 C. pneumoniae DNA (PCR) Not detected (NOT DETECT) 12/06/24 17:00 Coronavirus 229E (PCR) Not detected (NOT DETECT) 12/06/24 17:00 Human Metapneumovir PCR Not detected (NOT DETECT) 12/06/24 17:00 Influenza A (H1) PCR Not detected (NOT DETECT) 12/06/24 17:00 Influ A (H1/09) PCR Not detected (NOT DETECT) 12/06/24 17:00 Influenza A (H3) PCR Not detected (NOT DETECT) 12/06/24 17:00 Influenza Type A (PCR) Not detected (NOT DETECT) 12/06/24 17:00 Influenza Type B (PCR) Not detected (NOT DETECT) 12/06/24 17:00 M. pneumoniae (PCR) Not detected (NOT DETECT) 12/06/24 17:00 Parainfluenza 1 (PCR) Not detected (NOT DETECT) 12/06/24 17:00 Parainfluenza 2 (PCR) Not detected (NOT DETECT) 12/06/24 17:00 Parainfluenza 3 (PCR) Not detected (NOT DETECT) 12/06/24 17:00 Parainfluenza 4 (PCR) Not detected (NOT DETECT) 12/06/24 17:00 RSV Type A (PCR) Not detected (NOT DETECT) 12/06/24 17:00 RSV Type B (PCR) Not detected (NOT DETECT) 12/06/24 17:00 Entero/Rhino (PCR) Not detected (NOT DETECT) 12/06/24 17:00 SARS-CoV-2 (PCR) Not detected (NOT DETECT) 12/06/24 17:00 All radiology interpretation(s) finalized by discharge Discharge Plan Discharge Patient Disposition: [facility] Clinical Impression: Acute psychosis Condition: Stable Referrals: Morgan Jeronimo MD [Primary Care Provider] - Coding Level of Care Code ED Drafter Plumbing for Flavia Tate
--- NOTE | 2024-12-06 15:51 | ECG_ITS ---
[facility] Test Date: 2024-12-06 Pat Name: Michelle Palafox Department: Room: Gender: Female Vp Publisher Development: : 1950 Requested By: Agustín Flores Order Number: [id number] Rikki MD: Fátima Arenas M.D. Measurements Intervals [place] Rate: 94 P: -79 ME: 130 QRS: -41 QRSD: 113 T: 62 QT: 376 QTc: 472 Interpretive Statements Sinus RHYTHM WITH OCCASIONAL VENTRICULAR PREMATURE COMPLEXES LEFT AXIS DEVIATION [QRS AXIS < -30] INCOMPLETE RIGHT BUNDLE BRANCH BLOCK [90+ ms QRS DURATION, TERMINAL R IN V1/V2, 40+ ms S IN I/aVL/V4/V5/V6] MODERATE ST DEPRESSION [0.05+ mV ST DEPRESSION] Compared to ECG 08/28/2022 13:58:05 Junctional rhythm now present Sinus rhythm no longer present ST (T wave) deviation still present Electronically Signed On 12-06-2024 17:16:51 SHANK MAKER by Fátima Arenas M.D. [id number]
[2024-12-06] MEDS: LORazepam 1 mg Tablet PO (16:01)
[2024-12-06 16:30] LABS: Basophils # 0.1 10^3/uL (0.0-0.1); Basophils % 0.7 %; Eosinophils # 0.2 10^3/uL (0.0-0.8); Eosinophils % 1.8 %; Hematocrit 47.5 % (36-47); Lymphocytes # 3.1 10^3/uL (0.8-4.8); Mean Corpuscular HGB Conc 32.4 g/dL (30-55); Mean Corpuscular Hemoglobin 30.4 pg (27-33); Mean Corpuscular Volume 93.9 fl (85-98); Mean Platelet Volume 10.2 fL (7.4-10.4); Neutrophils # 5.87 10^3/uL (1.8-7.7); Neutrophils % 57.4 %; Nucleated Red Blood Cells % 0 %; Platelet Count 248 10^3/cmm (157-399); Red Blood Count 5.06 10^6/uL (3.85-5.65); Red Cell Distribution Width 14.2 % (12.1-15.1); White Blood Count 10.21 10^3/uL (3.29-11.43)
[2024-12-06 16:33] LABS: Bilirubin Urine Negative (Negative); Blood Urine Negative (Negative); Glucose Urine UA Negative (Normal); Ketones Urine 1+ (Negative); Leukocyte Esterase Urine 1+ (Negative); Nitrate Urine Negative (Negative); Protein Urine 1+ (Negative); Specific Gravity, Urine 1.016 (1.005-1.030); Urine Appearance Cloudy (CLEAR); Urine Color Yellow (Yellow); pH Urine 6.5 (5-7)
[2024-12-06 16:38] LABS: Add Urine Microscopic? YES; Bacteria Urine 1+ /hpf; Hyaline Casts Urine 29.34 /lpf; WBC Urine 0-5 /hpf (0-5)
[2024-12-06 16:42] LABS: Amphetamines Screen Urine Negative (Negative); Barbiturates Screen Urine Negative (Negative); Benzodiazepines Screen Urine Negative (Negative); Cocaine Screen Urine Negative (Negative); Opiate Screen Urine Negative (Negative); PCP Screen Urine Negative (Negative); THC Screen Urine Negative (Negative)
[2024-12-06 16:58] LABS: Add Urine Culture? No
[2024-12-06 17:16] LABS: Alanine Aminotransferase 18 U/L (0-33); Albumin Level 3.9 g/dL (3.5-5.2); Alkaline Phosphatase 123 U/L (35-105); Anion Gap 15.8 (5-19); Aspartate Amino Transferase 29 U/L (0-32); Blood Urea Nitrogen 16 mg/dL (8-23); Calcium 9.7 mg/dL (8.5-10.5); Carbon Dioxide 28 mmol/L (22-29); Chloride 99 mmol/L (98-107); Creatinine Clr Calc Pharmacy 47.1405; Globulin 3.6 g/dL (1.3-4.6); Glucose 81 mg/dL (65-115); Osmolality Calculated 288 mOsm/kg (285-295); Potassium 3.8 mmol/L (3.5-5.1); Sodium 139 mmol/L (136-145); Thyroid Stimulating Hormone 0.93 uIU/mL (0.27-4.20); Total Bilirubin 0.4 mg/dL (0.15-1.2); Total Protein 7.5 g/dL (6.6-8.7)
[2024-12-06 17:17] LABS: Acetaminophen < 5.0 ug/mL (10-30); Alcohol Level < 10 mg/dL (0-10); Salicylate < 0.3 mg/dL (3-10)
[2024-12-06 18:10] VITALS: BP 132/78; PULSE 92; O2SAT 94
[2024-12-06 19:14] LABS: Adenovirus Not Detected (NOT DETECT); Chlamydia Pneumoniae Not Detected (NOT DETECT); Coronavirus 229E,HKU1,NL63,OC4 Not Detected (NOT DETECT); Human Metapneumovirus Not Detected (NOT DETECT); Human Rhinovirus/Enterovirus Not Detected (NOT DETECT); Influenza A Not Detected (NOT DETECT); Influenza A H1 Not Detected (NOT DETECT); Influenza A H1-2009 Not Detected (NOT DETECT); Influenza A H3 Not Detected (NOT DETECT); Influenza B Not Detected (NOT DETECT); Mycoplasma Pneumoniae Not Detected (NOT DETECT); Parainfluenza Virus Type 1 Not Detected (NOT DETECT); Parainfluenza Virus Type 2 Not Detected (NOT DETECT); Parainfluenza Virus Type 3 Not Detected (NOT DETECT); Parainfluenza Virus Type 4 Not Detected (NOT DETECT); Respiratory Syncytial Virus A Not Detected (NOT DETECT); Respiratory Syncytial Virus B Not Detected (NOT DETECT); SARS-COV-2 Not Detected (NOT DETECT)
[2024-12-06 22:45] VITALS: BP 148/98; PULSE 84; O2SAT 92
--- NOTE | 2024-12-06 22:46 | PC.NURSE ---
pt report called to [facility], this nurse spoke to Shayy Marie RN @1599. Pt report called to [address] at [phone]. pt consented for transfer, pt signed transfer form @4468.
[2024-12-07 04:48] VITALS: BP 147/95; RESP 84; O2SAT 94
--- NOTE | 2024-12-07 07:00 | PC.NURSE ---
pt changed into green paper scrubs, resting in room 6 ; PSA outside room; respirations even and unlabored
--- NOTE | 2024-12-07 08:08 | PC.NURSE ---
report given to [facility] @0859, no further questions
[2024-12-07 08:09] VITALS: BP 156/91; PULSE 92; O2SAT 95
--- NOTE | 2024-12-07 08:11 | PC.NURSE ---
pt belongings, along with inventory paper, sent with [facility]. pt ate breakfast and offered restroom prior to leaving facility
== END 2024-12-07 08:18 ==
PROVIDERS: Emergency Provider Physician Assistant; PCP Family Medicine
DX: F23 Brief psychotic disorder (principal); Z11.52 Encounter for screening for COVID-19; F17.210 Nicotine dependence, cigarettes, uncomplicated
CPT/HCPCS: 36415; 71045; 80053; 80306; 80307; 81001; 84443; 85025; 87486; 87581; 87633; 93005; 99285

== ENCOUNTER 2024-12-26 14:38 | Emergency (ER) | payer MEDICAID, SELFPAY ==
[2024-12-26 14:42] VITALS: BP 152/73; PULSE 86; RESP 17; TEMP 37; O2SAT 94; BMI 22.3
--- NOTE | 2024-12-26 14:48 | ECG_ITS ---
[employer] Test Date: 2024-12-26 Pat Name: Michelle Palafox Department: Room: Gender: Female Cardiac Monitor: : 1950 Requested By: Jojo Ferreira Order Number: [id number] Brandt MD: Carlo Pereira M.D. Measurements Intervals [place] Rate: 75 P: -82 CO: 142 QRS: -46 QRSD: 145 T: 58 QT: 407 QTc: 457 Interpretive Statements ECTOPIC ATRIAL RHYTHM RIGHT BUNDLE BRANCH BLOCK [120+ ms QRS DURATION, UPRIGHT V1, 40+ ms S IN I/aVL/V4/V5/V6] LEFT ANTERIOR FASCICULAR BLOCK [QRS AXIS <= -45, QR IN I, RS IN II] Compared to ECG 12/06/2024 15:51:31 Ectopic atrial rhythm now present Right bundle-branch block now present Left anterior fascicular block now present Left-axis deviation no longer present Incomplete right bundle-branch block no longer present ST (T wave) deviation no longer present Electronically Signed On 12-30-2024 13:46:48 ROUGHING MILL OPERATOR by Carlo Pereira M.D. [id number]
[2024-12-26 15:28] LABS: Basophils # 0.1 10^3/uL (0.0-0.1); Basophils % 0.8 %; Eosinophils # 0.2 10^3/uL (0.0-0.8); Eosinophils % 1.6 %; Hematocrit 41.6 % (36-47); Lymphocytes # 2.8 10^3/uL (0.8-4.8); Lymphocytes % 25.2 %; Mean Corpuscular HGB Conc 32.7 g/dL (30-55); Mean Corpuscular Hemoglobin 29.8 pg (27-33); Mean Platelet Volume 9.7 fL (7.4-10.4); Monocytes # 1.1 10^3/uL (0.2-0.9); Monocytes % 9.9 %; Neutrophils # 6.98 10^3/uL (1.8-7.7); Neutrophils % 62.2 %; Nucleated Red Blood Cells % 0 %; Platelet Count 365 10^3/cmm (157-399); Red Blood Count 4.57 10^6/uL (3.85-5.65); Red Cell Distribution Width 13.4 % (12.1-15.1); White Blood Count 11.21 10^3/uL (3.29-11.43)
--- NOTE | 2024-12-26 15:54 | ED.C_ITS ---
HPI - Psych 2 General: Chief Complaint: Psychiatric Symptoms Stated Complaint: MHE Time Seen by Provider: 12/26/24 14:41 Source: patient Mode of arrival: ambulatory Limitations: no limitations History of Present Illness: 74-year-old female that states she has b een feeling very stressed out. She had recently been admitted to [place] she states she just got out a few days ago she states that she still feels stressed she denies being suicidal or homicidal she denies any worsening improving factors. Associated symptoms: Reports depression Related Data Home Medications Medication Instructions Recorded Confirmed amlodipine 10 mg tablet 10 mg PO DAILY 07/30/22 12/26/24 lisinopril 40 mg tablet 40 mg PO DAILY 07/30/22 12/26/24 loratadine 10 mg tablet (Allergy 10 mg PO DAILY PRN allergies 07/30/22 12/26/24 Relief (loratadine)) atorvastatin 10 mg tablet 10 mg PO DAILY 12/06/24 12/26/24 mupirocin 2 % topical ointment 1 applic topical TID 12/06/24 12/26/24 escitalopram oxalate 10 mg tablet 10 mg PO QAM 12/26/24 12/26/24 mirtazapine 15 mg tablet 15 mg PO QPM 12/26/24 12/26/24 paliperidone 6 mg tablet,extended 6 mg PO QAM 12/26/24 12/26/24 release 24 hr Allergies Allergy/AdvReac Type Severity Reaction Status Date / Time No Known Allergies Allergy Verified 12/26/24 14:45 Review of Systems 2 Const: Denies: fever(s), chills, body aches or change in appetite ENMT: Denies: throat pain or dental pain Card: Denies: chest pain Resp: Denies: dyspnea GI: Denies: abdominal pain, nausea, vomiting or diarrhea Musc: Denies: neck pain or back pain Skin/Breast: Denies: rash Neuro: Denies: headache(s) Psych: Reports: depression PFSH ED 2 PFSH: Medical History Allergic reaction Hypertension Social History Smoking and tobacco/nicotine status: current every day tobacco/nicotine user cigarettes Packs smoked per day: 2 Years cigarettes smoked: 41 Alcohol intake: never Substance/Drug Use: never Physical Exam 2 Const: COMMON NORMALS: no acute distress, patient oriented x3 and healthy appearing HENMT: COMMON NORMALS: normocephalic and atraumatic HEAD & SCALP: n ormocephalic and atraumatic Eye: COMMON NORMALS: conjunctivae normal CONJUNCTIVA: Yes conjunctivae normal Neck/C-Spine: COMMON NORMALS: full ROM and supple Chest: COMMONS NORMALS: normal inspection of the chest Resp: COMMON NORMALS: normal respiratory effort Cardio: COMMON NORMALS: regular rate RATE: regular rate Extremity: COMMON NORMALS: normal to inspection and full ROM Neuro: COMMON NORMALS: patient oriented x3, moves all extremities and no focal motor deficits Psych: COMMON NORMALS: mental status grossly normal, Normal thought process present and cooperative THOUGHT PROCESS: Normal thought process present Skin: COMMON NORMALS: no rashes or lesions noted and no wounds GENERAL SKIN EXAM: no rashes or lesions noted Course 2 Vital Signs: Vital signs: Vital Signs Temperature 98.6 F 12/26/24 14:42 Pulse Rate 86 12/26/24 14:42 Respiratory Rate 17 12/26/24 14:42 Blood Pressure 152/73 12/26/24 14:42 Pulse Oximetry 94 12/26/24 14:42 Oxygen Delivery Me thod Room Air 12/26/24 14:42 [facility] - Psych Medical Decision Making Patient presents for some depression he is not suicidal or homicidal she did recently just got a psych facility will give her crisis and her information she stable for discharge she is follow-up with crisis center informed if her symptoms worsen she is return to ER she understands agrees to plan. Medical Records I reviewed the patient's medical records. Lab Data I reviewed the patient's lab results. 12/26/24 15:15 12/26/24 15:15 Laboratory Results WBC 11.21 10^3/uL (3.29-11.43) 12/26/24 15:15 RBC 4.57 10^6/uL (3.85-5.65) 12/26/24 15:15 Hgb 13.60 g/dL (11.27-16.99) 12/26/24 15:15 Hct 41.6 % (36-47) 12/26/24 15:15 MCV 91.0 fl (85-98) 12/26/24 15:15 MCH 29.8 pg (27-33) 12/26/24 15:15 MCHC 32.7 g/dL (30-55) 12/26/24 15:15 RDW 13.4 % (12.1-15.1) 12/26/24 15:15 Plt Count 365 10^3/cmm (157-399) 12/26/24 15:15 MPV 9.7 fL (7.4-10.4) 12/26/24 15:15 Neut % (Auto) 62.2 % 12/26/24 15:15 Lymph % (Auto) 25.2 % 12/26/24 15:15 [place] % (Auto) 9.9 % 12/26/24 15:15 Eos % (Auto) 1.6 % 12/26/24 15:15 Baso % (Auto) 0.8 % 12/26/24 15:15 Neut # (Auto) 6.98 10^3/uL (1.8-7.7) 12/26/24 15:15 Lymph # (Auto) 2.8 10^3/uL (0.8-4.8) 12/26/24 15:15 [place] # (Auto) 1.1 10^3/uL (0.2-0.9) H 12/26/24 15:15 Eos # (Auto) 0.2 10^3/uL (0.0-0.8) 12/26/24 15:15 Baso # (Auto) 0.1 10^3/uL (0.0-0.1) 12/26/24 15:15 Nucleated RBC % (auto) 0 % 12/26/24 15:15 Nucleated RBCs # 0.0 /100WBC 12/26/24 15:15 Sodium 135 mmol/L (136-145) L 12/26/24 15:15 Potassium 4.0 mmol/L (3.5-5.1) 12/26/24 15:15 Chloride 95 mmol/L (98-107) L 12/26/24 15:15 Carbon Dioxide 27 mmol/L (22-29) 12/26/24 15:15 Anion Gap 17.0 (5-19) 12/26/24 15:15 BUN 12 mg/dL (8-23) 12/26/24 15:15 Creatinine 0.9 mg/dL (0.5-0.9) 12/26/24 15:15 GFR Calculation Not Reportable 12/26/24 15:15 Glucose 98 mg/dL (65-115) 12/26/24 15:15 Calculated Osmolality 280 mOsm/kg (285-295) L 12/26/24 15:15 Calcium 8.9 mg/dL (8.5-10.5) 12/26/24 15:15 Total Bilirubin 0.4 mg/dL (0.15-1.2) 12/26/24 15:15 AST 20 U/L (0-32) 12/26/24 15:15 ALT 15 U/L (0-33) 12/26/24 15:15 Alkaline Phosphatase 127 U/L (35-105) H 12/26/24 15:15 Total Protein 7.3 g/dL (6.6-8.7) 12/26/24 15:15 Albumin 3.6 g/dL (3.5-5.2) 12/26/24 15:15 Globulin 3.7 g/dL (1.3-4.6) 12/26/24 15:15 TSH 1.09 uIU/mL (0.27-4.20) 12/26/24 15:15 Salicylates < 0.3 mg/dL (3-10) L 12/26/24 15:15 Acetaminophen < 5.0 ug/mL (10-30) L 12/26/24 15:15 Ethyl Alcohol < 10 mg/dL (0-10) 12/26/24 15:15 No radiology studies performed this visit Discharge Plan Discharge Patient Disposition: Home Clinical Impression: Depression Condition: Stable Prescriptions: No Action amlodipine 10 mg tablet 10 mg PO DAILY lisinopril 40 mg tablet 40 mg PO DAILY loratadine [Allergy Relief (loratadine)] 10 mg tablet 10 mg PO DAILY PRN (Reason: allergies) atorvastatin 10 mg tablet 10 mg PO DAILY mupirocin 2 % ointment 1 applic TOPICAL TID mirtazapine 15 mg tablet 15 mg PO QPM escitalopram oxalate 10 mg tablet 10 mg PO QAM paliperidone 6 mg tablet extended release 24 hr 6 mg PO QAM Discharge Orders: Discharge ED (Routine); Ordered 12/26/24 Ordered By: Melecio Ferguson Referrals: Morgan Jeronimo MD [Primary Care Provider] - 4-7 days Discharge Diet: Advance as tolerated Discharge Activity: Resume usual activity Patient Instructions: Depression (ED) Coding Level of Care Code ED Product Development Intern for Flavia Tate
[2024-12-26 15:58] LABS: Alanine Aminotransferase 15 U/L (0-33); Albumin Level 3.6 g/dL (3.5-5.2); Alkaline Phosphatase 127 U/L (35-105); Aspartate Amino Transferase 20 U/L (0-32); Blood Urea Nitrogen 12 mg/dL (8-23); Calcium 8.9 mg/dL (8.5-10.5); Carbon Dioxide 27 mmol/L (22-29); Chloride 95 mmol/L (98-107); Creatinine Clr Calc Pharmacy 48.4353; Globulin 3.7 g/dL (1.3-4.6); Glucose 98 mg/dL (65-115); Osmolality Calculated 280 mOsm/kg (285-295); Sodium 135 mmol/L (136-145); Thyroid Stimulating Hormone 1.09 uIU/mL (0.27-4.20); Total Bilirubin 0.4 mg/dL (0.15-1.2); Total Protein 7.3 g/dL (6.6-8.7)
[2024-12-26 15:59] LABS: Acetaminophen < 5.0 ug/mL (10-30); Alcohol Level < 10 mg/dL (0-10); Salicylate < 0.3 mg/dL (3-10)
[2024-12-26 16:16] VITALS: BP 115/67; PULSE 78; O2SAT 93
== END 2024-12-26 16:18 | disposition home or self-care (01) ==
PROVIDERS: Physician Assistant; Emergency Provider Emergency Medicine; PCP Family Medicine
DX: F32.A Depression, unspecified (principal); F17.210 Nicotine dependence, cigarettes, uncomplicated; I10 Essential (primary) hypertension
CPT/HCPCS: 36415; 80053; 80307; 84443; 85025; 93005; 99284

== ENCOUNTER 2025-07-03 17:16 | Outpatient (CLI) | payer MEDICAID, SELFPAY ==
--- NOTE | 2025-07-03 17:24 | XRR_ITS ---
PROCEDURE INFORMATION: Exam: XR Left Shoulder Exam date and time: 07/03/2025 5:29 PM Age: 75 years old Clinical indication: Chronic left shoulder pain, shoulder impingement syndrome, pain runs down elbow and up to neck; Additional info: Impingement syndrome of left shoulder TECHNIQUE: Imaging protocol: Radiologic exam of the left shoulder. Views: 2 or more views. COMPARISON: US soft tissue/extremity [id number] 08/11/2023 1:27 PM FINDINGS: Bones/joints: No definite acute osseous abnormality. No acute malalignment. Marked degenerative changes of the glenohumeral joint with prominent osteophyte along the inferior humeral head. Soft tissues: Normal. XR/XR shoulder LT min 2V* [id number] IMPRESSION: As above.
== END 2025-07-03 17:17 | disposition home or self-care (01) ==
LOC: RAD 17:21
PROVIDERS: PCP Family Medicine; Visit Provider Family Medicine
DX: M75.42 Impingement syndrome of left shoulder (principal); M19.012 Primary osteoarthritis, left shoulder
CPT/HCPCS: 73030